=== PATIENT | female | born 1960 | race Hispanic/Latino ===

== ENCOUNTER 2021-12-29 12:34 | Emergency (ER) | payer BC, SELFPAY ==
[2021-12-29 13:48] LABS: Absolute Lymphocytes (CBC) 1.5 K/uL (0.7-4.9); Hematocrit 30.6 % (36.0-45.0); Lymphocytes % 18.3 % (15.3-44.8); RBC Red Blood Cell Count 3.57 M/uL (3.86-4.86)
[2021-12-29 14:04] LABS: Albumin 3.9 g/dL (3.4-5.0); Bilirubin Total 0.3 mg/dL (0.2-1.0); Potassium 5.3 mmol/L (3.5-5.1); Protein, Total 8.2 g/dL (6.4-8.2)
[2021-12-29] MEDS ORDERED: NA CHLORIDE 0.9% 500 ML ONE (14:48)
[2021-12-29 15:26] LABS: Urine Blood Negative (Negative); Urine Glucose Negative (Negative); Urine Protein Negative (Negative); Urine pH 5.5 (5.0-7.0)
[2021-12-29 15:37] LABS: Urine Bacteria >50 /HPF (<20); Urine RBC NONE SEEN /HPF (NONE SEEN)
--- NOTE | 2021-12-29 16:04 | RAD REPORT ---
EXAM DESCRIPTION: CTAbdomen Pelvis W Contrast - 12/29/2021 3:48 pm CLINICAL HISTORY: Abdominal pain. Flank pain, kidney stone suspected COMPARISON: Abdomen Pelvis W Contrast dated 01/13/2016 TECHNIQUE: Biphasic CT imaging of the abdomen and pelvis was performed with 100 ml non-ionic IV cont rast. All CT scans are performed using dose optimization technique as appropriate and may include automated exposure control or mA/KV adjustment according to patient size. FINDINGS: The lung bases are clear. The liver, spleen, pancreas, adrenal glands are within normal limits. Cholelithiasis. Small stones ar e present in both kidneys without hydronephrosis. There is prominent atrophy of the left kidney seen. There is a 2 mm calculus in the distal left ureter present. Slight hydronephrosis and hydroureter on the left. No bowel obstruction, free air, free fluid or abscess. Moderate stool is present throughout the colon . The appendix is normal. No evidence of significant lymphadenopathy. No suspicious bony findings. IMPRESSION: 2 mm calculus distal left ureter is suspected with slight left-sided hydronephrosis and hydroureter. Additional bilateral nephrolithiasis. Cholelithiasis.
--- NOTE | 2021-12-29 16:31 | EDPHYS ---
Physician Documentation [facility] Name: Tesha Moreno Age: 61 yrs Sex: Female : 1960 Arrival Date: 12/29/2021 Time: 12:35 Bed 23 Private MD: ED Physician Lincoln Perez HPI: 12/29 16:39 This 61 yrs old Female presents to ER via Ambulatory with complaints of Back kdr Pain, Urinary Retention. 16:35 Patient reports bilateral flank pain CVA tenderness for about a week. She also states kdr she has had pain with urination for the past 2 to 3 days. She does have a history of kidney stones. Her discomfort is similar to prior episodes. She is otherwise not toxic appearing in the ED. Onset: The symptoms/episode began/occurred 1 week(s) ago. Severity of symptoms: At their worst the symptoms were mild moderate in the emergency department the symptoms are unchanged. The patient has experienced similar episodes in the past, several times. The patient has not recently seen a physician. Historical: - Allergies: 13:33 No Known Allergies; iw - PMHx: 13:33 Hypertensive disorder; Diabetes mellitus; Hypercholesterolemia; iw - PSHx: 13:33 Lithotripsy; iw ROS: 16:35 Constitutional: Negative for fever, chills, and weight loss, Eyes: Negative for injury, kdr pain, redness, and discharge, ENT: Negative for injury, pain, and discharge, Neck: Negative for injury, pain, and swelling, Cardiovascular: Negative for chest pain, palpitations, and edema, Respiratory: Negative for shortness of breath, cough, wheezing, and pleuritic chest pain, : Negative for injury, bleeding, discharge, and swelling, MS/Extremity: Negative for injury and deformity, Skin: Negative for injury, rash, and discoloration, Neuro: Negative for headache, weakness, numbness, tingling, and seizure activity. Psych: Negative for depression, anxiety, suicide ideation, homicidal ideation, and hallucinations, Allergy/Immunology: Negative for hives, rash, and allergies, Endocrine: Negative for neck swelling, polydipsia, polyuria, polyphagia, and marked weight changes, Hematologic/Lymphatic: Negative for swollen nodes, abnormal bleeding, and unusual bruising. 16:35 Abdomen/GI: Positive for nausea, Negative for vomiting, diarrhea, constipation, abdominal cramps, abdominal distension, black/tarry stool, rectal pain, rectal bleeding, bowel incontinence. 16:35 Back: Positive for pain at rest, flank pain, of the left mid back and right mid back. Exam: 16:35 Constitutional: This is a well developed, well nourished patient who is awake, alert, kdr and in no acute distress. Head/Face: Normocephalic, atraumatic. Eyes: Pupils equal round and reactive to light, extra-ocular motions intact. Lids and lashes normal. Conjunctiva and sclera are non-icteric and not injected. Cornea within normal limits. Periorbital areas with no swelling, redness, or edema. Neck: Trachea midline, no thyromegaly or masses palpated, and no cervical lymphadenopathy. Supple, full range of motion without nuchal rigidity, or vertebral point tenderness. No Meningismus. Chest/axilla: Normal chest wall appearance and motion. Nontender with no deformity. No lesions are appreciated. Cardiovascular: Regular rate and rhythm with a normal S1 and S2. No gallops, murmurs, or rubs. Normal PMI, no JVD. No pulse deficits. Respiratory: Lungs have equal breath sounds bilaterally, clear to auscultation and percussion. No rales, rhonchi or wheezes noted. No increased work of breathing, no retractions or nasal flaring. Abdomen/GI: Soft, non-tender, with normal bowel sounds. No distension or tympany. No guarding or rebound. No evidence of tenderness throughout. Skin: Warm, dry with normal turgor. Normal color with no rashes, no lesions, and no evidence of cellulitis. MS/ Extremity: Pulses equal, no cyanosis. Neurovascular intact. Full, normal range of motion. Neuro: Awake and alert, GCS 15, oriented to person, place, time, and situation. Cranial nerves II-XII grossly intact. Motor strength 5/5 in all extremities. Sensory grossly intact. Cerebellar exam normal. Normal gait. Psych: Awake, alert, with orientation to person, place and time. Behavior, mood, and affect are within normal limits. Vital Signs: 13:34 BP 133 / 59; Pulse 90; Resp 16; Temp 98.2; Pulse Ox 98% on R/A; iw MDM: 16:31 Patient medically screened. kdr 16:39 Data reviewed: vital signs, nurses notes, lab test result(s), radiologic studies. kdr Counseling: I had a detailed discussion with the patient and/or guardian regarding: the historical points, exam findings, and any diagnostic results supporting the discharge/admit diagnosis, lab results, radiology results, the need for outpatient follow up. 12/29 12:50 Order name: CBC with Diff; Complete Time: 14:25 kdr 12/29 12:50 Order name: CMP; Complete Time: 14:25 kdr 12/29 12:50 Order name: Lipase; Complete [facility]: [facility] 12/29 15:20 Order name: Urine Microscopic Only; Complete Time: 16:28 iw 12/29 15:26 Order name: Urine Dipstick-Ancillary; Complete Time: 16:28 EDIL 12/29 15:40 Order name: Urine Culture [facility] 12/29 12:50 Order name: IV Saline Lock; Complete Time: 13:44 kdr 12/29 12:50 Order name: Labs collected and sent; Complete Time: 13:44 [facility] 12/29 12:50 Order name: Urine Dipstick-Ancillary (obtain specimen); Complete Time: 15:20 [facility] 12/29 14:30 Order name: CT Abd/Pelvis - IV Contrast Only; Complete Time: 16:28 kdr Administered Medications: 14:47 Drug: NS 0.9% 500 ml Route: IV; Rate: bolus; Site: right antecubital; iw 15:20 Follow up: IV Status: Completed infusion iw 16:59 Drug: Bactrim (trimethoprim-sulfamethoxazole) (160 mg-800 mg (DS) 1 tablet Route: PO; iw 17:05 Follow up: Response: No adverse reaction iw Disposition Summary: 12/29/21 16:31 Discharge Ordered Location: Home kdr Problem: new kdr Symptoms: have improved kdr Condition: Fair kdr Diagnosis - Unspecified renal colic kdr - Other and unspecified hydronephrosis kdr - UTI/ Urinary tract infection, site not specified kdr Followup: kdr - With: Private Physician - When: 2 - 3 days - Reason: If symptoms return, Further diagnostic work-up, Recheck today's complaints, Continuance of care, Re-evaluation by your physician Discharge Instructions: - Discharge Summary Sheet kdr - Dysuria kdr - Urinary Tract Infection, Adult kdr - Renal Colic, [id number] kdr - Kidney Stones, [id number] kdr - Urinary Tract Infection, Adult, [id number] kdr Forms: - Medication Reconciliation Form kdr - Thank You Letter kdr - Antibiotic Education kdr - Prescription Opioid Use kdr Prescriptions: - tamsulosin 0.4 mg Oral capsule - take 1 capsule by ORAL route once daily 1/2 hour following the same meal each [facility] day; 10 capsule; Refills: 0, Product Selection Permitted - Zofran 4 mg Oral Tablet - take 1 tablet by ORAL route every 4-6 hours As needed; 12 tablet; Refills: 0, kdr Product Selection Permitted - Tramadol 50 mg Oral Tablet - take 1 tablet by ORAL route every 8 hours as needed; 12 tablet; Refills: 0, kdr Product Selection Permitted - Bactrim DS 800-160 mg Oral Tablet - take 1 tablet by ORAL route every 12 hours for 3 days; 6 tablet; Refills: 0, kdr Product Selection Permitted Signatures: Dispatcher [employer] Lincoln Best MD MD kdr Leanne Childs RN RN iw
--- NOTE | 2021-12-29 16:31 | ER ---
Nurse's Notes [facility] Name: Tesha Moreno Age: 61 yrs Sex: Female : 1960 Arrival Date: 12/29/2021 Time: 12:35 Bed 23 Private MD: Diagnosis: Unspecified renal colic;Other and unspecified hydronephrosis;UTI/ Urinary tract infection, site not specified Presentation: 12/29 13:32 Chief complaint: Patient states: hebert kidney pain X 1 week, hard time urinating X 2-3 iw days, hx of kidney stones. Coronavirus screen: At this time, the client does not indicate any symptoms associated with coronavirus-19. Ebola Screen: Patient negative for fever greater than or equal to 101.5 degrees Fahrenheit, and additional compatible Ebola Virus Disease symptoms Patient denies exposure to infectious person. Patient denies travel to an Ebola-affected area in the 21 days before illness onset. No symptoms or risks identified at this time. Initial Sepsis Screen: Does the patient meet any 2 criteria? No. Patient's initial sepsis screen is negative. Does the patient have a suspected source of infection? No. Patient's initial sepsis screen is negative. Risk Assessment: Do you want to hurt yourself or someone else? Patient reports no desire to harm self or others. Onset of symptoms was December 21, 2021. 13:32 Method Of Arrival: Ambulatory iw 13:32 Acuity: AMANDO 3 iw Triage Assessment: 15:00 General: Appears in no apparent distress. iw Historical: - Allergies: 13:33 No Known Allergies; iw - PMHx: 13:33 Hypertensive disorder; Diabetes mellitus; Hypercholesterolemia; iw - PSHx: 13:33 Lithotripsy; iw Screenin:48 Abuse screen: Denies threats or abuse. Denies injuries from another. Nutritional iw screening: No deficits noted. Tuberculosis screening: No symptoms or risk factors identified. Fall Risk IV access (20 points). Assessment: 15:48 Reassessment: Patient appears in no apparent distress at this time. Patient and/or iw family updated on plan of care and expected duration. Pain level reassessed. Patient is alert, oriented x 3, equal unlabored respirations, skin warm/dry/pink. Vital Signs: 13:34 BP 133 / 59; Pulse 90; Resp 16; Temp 98.2; Pulse Ox 98% on R/A; iw ED Course: 12:35 Patient arrived in ED. as 12:47 Lincoln Perez MD is Attending Physician. kdr 13:32 Leanne Childs, RN is Primary Nurse. iw 13:33 Triage completed. iw 13:33 Arm band placed on. iw 13:38 Initial lab(s) drawn, by me, sent to lab. Inserted saline lock: 20 gauge in right 3 antecubital area, using aseptic technique. Blood collected. 15:50 CT Abd/Pelvis - IV Contrast Only In Process Unspecified. EDMS 17:00 No provider procedures requiring assistance completed. IV discontinued, intact, iw bleeding controlled, No redness/swelling at site. Pressure dressing applied. Administered Medications: 14:47 Drug: NS 0.9% 500 ml Route: IV; Rate: bolus; Site: right antecubital; iw 15:20 Follow up: IV Status: Completed infusion iw 16:59 Drug: Bactrim (trimethoprim-sulfamethoxazole) (160 mg-800 mg (DS) 1 tablet Route: PO; iw 17:05 Follow up: Response: No adverse reaction iw Outcome: 16:31 Discharge ordered by . kdr 17:05 Discharged to home ambulatory, with family. iw 17:05 Condition: good 17:05 Discharge instructions given to patient, family, Instructed on discharge instructions, follow up and referral plans. medication usage, Demonstrated understanding of instructions, follow-up care, medications, Prescriptions given X 4. 17:06 Patient left the ED. iw Signatures: Dispatcher [employer] EDSC Lincoln Perez MD MD kdr Tete Parker as Leanne Childs, [place] RN Maria Esther Conrad [facility]
[2021-12-29] MEDS ORDERED: SMZ./TMP. 800/160 MG TABLET ONE (16:42)
[2021-12-29] MEDS ORDERED: TRAMADOL HCL 50 MG TAB ONE (17:01)
[2021-12-29 17:52] VITALS: BP 133/59; TEMP 98.2; O2SAT 98
== END 2021-12-29 17:06 | disposition home or self-care (01) ==
LOC: ER 12:34
DX: N23 Unspecified renal colic (principal); N39.0 Urinary tract infection, site not specified; N13.39 Other hydronephrosis; E11.9 Type 2 diabetes mellitus without complications; I10 Essential (primary) hypertension
CPT/HCPCS: 36415; 74177; 80053; 81003; 81015; 83690; 85025; 87077; 87086; 87088; 87186; 96360; 99284; J7040; Q9967